=== PATIENT | female | born 1955 | race American Indian/Alaskan Native ===

== ENCOUNTER 2020-01-19 09:52 | Emergency (ER) | payer MEDICARE ==
--- NOTE | 2020-01-19 10:26 | Cat Scan Report ---
CT HEAD WITHOUT CONTRAST INDICATION : neuro deficits <6hrs or sx present upon awakening. TECHNIQUE: Axial imaging performed from the skull apex through the skull base without the use of con trast. Sagittal and coronal reformatted images. All CT scans at this location are performed using C T dose reduction for ALARA by means of automated exposure control. COMPARISON: None FINDINGS: Parenchyma: Mild diffuse volume loss is evident which appears advanced for this person's age. Modera te to large areas of in cephalomalacia are identified in the right anterior temporal lobe and watersh ed regions of the right cerebral hemisphere consistent with previous chronic ischemic infarct. No acu te parenchymal abnormality is detected. No hemorrhage, mass or extra-axial fluid collection. There ap pear to be large bilateral aneurysms arising from the terminus of both ICAs. On the right side this l esion measures 1.8 x 1.4 cm in axial plane. On the left side this lesion measures 1.7 x 1.2 cm in axi al plane. Ventricles: Ventricles are normal in size and appear symmetric. A right ventriculoperitoneal shunt t erminates in the third ventricle. Bones: No acute osseous abnormality. Sinuses: Sinuses and mastoid air cells are clear. Soft tissues: Soft tissues including the orbits appear normal. IMPRESSION: No acute intracranial process is appreciated. No evidence for hemorrhage. 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 Further evaluation with CTA is recommended. Age-related changes. CODE STROKE: Time of communication: 1020 EST Licensed Practitioner Receiving Report: Jessica MONSON A read back was performed. Signer Name: Scottie Burk Jr, MD Signed: 01/19/2020 10:22 AM Workstation Name: [id number]
[2020-01-19] MEDS ORDERED: ONDANSETRON 4 MG/2 ML INJ IV ONE (10:30)
[2020-01-19] MEDS ORDERED: ONDANSETRON 4 MG/2 ML INJ ONE (10:30)
[2020-01-19] MEDS ORDERED: levETIRAcetam 1000 MG/NS 0.75% 1,000 MG/100 ML BAG IV ONE (10:45)
[2020-01-19] MEDS ORDERED: LORazepam 2 MG/ML VIAL IV ONE ×2 (10:45→13:44)
--- NOTE | 2020-01-19 10:51 | Emergency Department Report ---
ED Neuro Deficit HPI - General Chief Complaint: Neuro Symptoms/Deficit Stated Complaint: AMS/VOMITING Time Seen by Provider: 01/19/20 09:56 Source: family, EMS Mode of arrival: Stretcher Limitations: Altered Mental Status - History of Present Illness Initial Comments: Patient is 64 years old female with history of stroke in 1997 secondary to aneurysm. Patient with history of left-sided weakness since then. Patient brought to the emergency room via EMS from home accompanied by her . stated that around 7:25 AM today patient started vomiting and became unresponsive and then she will wake up after that. stated that this is happened 3 times this morning. Patient stated that since the last episode patient became unresponsive and start looking to the right sided. Upon arrival to the ER patient with obvious jerking movement to the right side and lateral gaze. Stroke protocol immediately initiated and patient moved to CT for stat CT head without contrast. Stroke cardiology immediately consulted and patient examined by Dr. Chandler via video conference. CT brain showed bilateral aneurysm however there is no clear evidence of hemorrhage. Dr. Chandler stated that patient is not a TPA candidate in order CTA neck and brain for further evaluation. He also advised to start patient on Keppra and Ativan. Patient also given Zofran for nausea and vomiting. Currently patient is alert however she is not communicating with stable vital sign and oxygen saturation of 100%. -: Sudden, This morning Presenting Symptoms: Present: Unable to Speak Clearly, Altered Mental Status Place: home - Related Data Home Medications: Home Medications Medication Instructions Recorded Confirmed Last Taken Amlodipine Besylate/Benazepril 1 cap PO DAILY 01/19/20 01/19/20 Unknown [Amlodipine-Benazepril 5-20 mg] Baclofen [Lioresal] 10 mg PO DAILY 01/19/20 01/19/20 Unknown Furosemide [Lasix TAB] 40 mg PO QDAY 01/19/20 01/19/20 Unknown Metoprolol [Lopressor] 25 mg PO DAILY 01/19/20 01/19/20 Unknown OLANzapine [ZyPREXA] 10 mg PO DAILY 01/19/20 01/19/20 Unknown Phenytoin [Dilantin] 100 mg PO Q8HR 01/19/20 01/19/20 Unknown Simvastatin 10 mg PO DAILY 01/19/20 01/19/20 Unknown Allergies/Adverse Reactions: Allergies Allergy/AdvReac Type Severity Reaction Status Date / Time No Known Allergies Allergy Verified 01/19/20 10:35 ED Review of Systems ROS: Stated complaint: AMS/VOMITING Other details as noted in HPI Comment: Unobtainable due to pts medical conditions ED Past Medical Hx - Medications Home Medications: Home Medications Medication Instructions Recorded Confirmed Last Taken Type Amlodipine Besylate/Benazepril 1 cap PO DAILY 01/19/20 01/19/20 Unknown History [Amlodipine-Benazepril 5-20 mg] Baclofen [Lioresal] 10 mg PO DAILY 01/19/20 01/19/20 Unknown History Furosemide [Lasix TAB] 40 mg PO QDAY 01/19/20 01/19/20 Unknown History Metoprolol [Lopressor] 25 mg PO DAILY 01/19/20 01/19/20 Unknown History OLANzapine [ZyPREXA] 10 mg PO DAILY 01/19/20 01/19/20 Unknown History Phenytoin [Dilantin] 100 mg PO Q8HR 01/19/20 01/19/20 Unknown History Simvastatin 10 mg PO DAILY 01/19/20 01/19/20 Unknown History ED Neuro Physical Exam - General Limitations: Altered Mental Status General appearance: alert, in no apparent distress Suspected Stroke: Yes - Head Head exam: Present: atraumatic, normocephalic, normal inspection - Eye Eye exam: Present: normal appearance - ENT ENT exam: Present: normal exam, normal orophraynx, mucous membranes moist - Neck Neck exam: Present: normal inspection. Absent: tenderness, meningismus - Respiratory Respiratory exam: Present: normal lung sounds bilaterally - Cardiovascular Cardiovascular Exam: Present: regular rate, normal rhythm, normal heart sounds - GI/Abdominal GI/Abdominal exam: Present: soft, normal bowel sounds. Absent: distended, tenderness, guarding, rebound, rigid, mass, bruit, pulsatile mass, hernia - Extremities Exam Extremities exam: Present: normal inspection - Neurological Exam Neurological exam: Present: alert, altered - NIHSS Assessment Interval: Baseline 1a. Level of Consciousness: coma/unresponsive 1b. LOC Questions: answers no questions correctly 1c. LOC Commands: performs no tasks correctly 2. Best Gaze: forced deviation 3. Visual: no visual loss 4. Facial Palsy: normal symmetrical movement 5b. Motor Arm Right: no gravity effort 5a. Motor Arm Left: no gravity effort 6a. Motor Leg Left: no gravity effort 6b. Motor Leg Right: no gravity effort 7. Limb Ataxia: absent 8. Sensory: coma/unresponsive 9. Best Language: mute/global aphasia 10. Dysarthria: intubated or other barrier 11. Extinction/Inattention: no abnormality Total Score: 26 Stroke Severity: Severe Stroke - Skin Skin exam: Present: warm, dry ED Course Vital Signs 01/19/20 01/19/20 01/19/20 11:03 11:07 11:08 Temperature Pulse Rate 112 H 103 H Respiratory 16 16 Rate Blood Pressure Blood Pressure 154/54 [Right] O2 Sat by Pulse 96 96 Oximetry 01/19/20 01/19/20 01/19/20 11:41 11:46 12:00 Temperature Pulse Rate 107 H 111 H 107 H Respiratory 16 14 20 Rate Blood Pressure Blood Pressure 134/86 [Right] O2 Sat by Pulse 96 95 95 Oximetry 01/19/20 01/19/20 01/19/20 12:16 12:30 12:45 Temperature Pulse Rate 113 H 111 H Respiratory 21 22 Rate Blood Pressure Blood Pressure [Right] O2 Sat by Pulse 93 96 97 Oximetry 01/19/20 01/19/20 01/19/20 13:02 13:42 13:45 Temperature Pulse Rate 112 H 113 H Respiratory 19 15 Rate Blood Pressure 146/69 Blood Pressure [Right] O2 Sat by Pulse 94 97 95 Oximetry 01/19/20 01/19/20 01/19/20 14:00 14:15 14:30 Temperature Pulse Rate 112 H 109 H 104 H Respiratory 16 12 13 Rate Blood Pressure 146/69 137/90 Blood Pressure [Right] O2 Sat by Pulse 95 98 97 Oximetry 01/19/20 01/19/20 01/19/20 14:32 14:45 15:01 Temperature Pulse Rate 103 H 107 H 111 H Respiratory 18 12 14 Rate Blood Pressure 137/90 108/75 Blood Pressure 137/90 [Right] O2 Sat by Pulse 97 98 97 Oximetry 01/19/20 01/19/20 01/19/20 15:15 15:31 15:45 Temperature Pulse Rate 119 H 120 H 129 H Respiratory 12 16 16 Rate Blood Pressure 108/75 84/42 84/42 Blood Pressure [Right] O2 Sat by Pulse 96 96 96 Oximetry 01/19/20 01/19/20 01/19/20 16:00 16:15 16:30 Temperature 98 F Pulse Rate 106 H 103 H 101 H Respiratory 17 20 20 Rate Blood Pressure 138/81 138/81 131/89 Blood Pressure [Right] O2 Sat by Pulse 100 99 99 Oximetry 01/19/20 01/19/20 01/19/20 16:41 16:45 17:00 Temperature Pulse Rate 101 H 99 H 100 H Respiratory 18 12 13 Rate Blood Pressure 131/89 137/84 Blood Pressure 131/89 [Right] O2 Sat by Pulse 99 99 99 Oximetry 01/19/20 17:15 Temperature Pulse Rate 95 H Respiratory 13 Rate Blood Pressure 137/84 Blood Pressure [Right] O2 Sat by Pulse 99 Oximetry - Reevaluation(s) Reevaluation #1: 01/19/20 12:46 Nurses were unable to obtain and CTA of neck and brain. IV team also unable to access. I placed a central line, right internal jugular vein. During my procedure patient is alert, oriented x3 and able to communicate very well and moving her right upper extremities. Patient received Keppra and 1 mg of Ativan and jerking movement is completely aborted. - Central Line Placement Right IJ Consent Obtained: emergent situation Time Out Performed: Yes Patient Placed on Monitor/Pulse Ox: Yes Prep: mask, gown, gloves Central Line Prep: Povidone-Iodine 1%, Chlorhexidine scrub, sterile drapes applied Local Anesthesia Used: Lidocaine 1% Amount of Anesthesia Used (mls): 4 Ultrasound Used for Placement: Yes Central Line Lumen Inserted: triple Central Line Position: good blood return, all ports aspirated, flus, sutured in place with 2-0 Dressing Applied: Tegaderm, sterile gauze/tape Post Procedure X-Ray: tip of catheter in good p Patient Tolerated Procedure: well, no complications Complications: none - Lab Data Result diagrams: 01/19/20 10:36 01/19/20 10:36 Lab Results 01/19/20 01/19/20 01/19/20 Range/Units 10:36 10:36 10:36 WBC 13.2 H (4.5-11.0) K/mm3 RBC 4.60 (3.65-5.03) M/mm3 Hgb 13.5 (10.1-14.3) gm/dl Hct 41.7 (30.3-42.9) % MCV 91 (79-97) fl MCH 29 (28-32) pg MCHC 32 (30-34) % RDW 15.4 H (13.2-15.2) % Plt Count 449 H (140-440) K/mm3 Lymph % (Auto) [place]ingle [place]rier [place] % (Auto) Shingle Carrier Eos % (Auto) [place]ingle [place]rier Baso % (Auto) [place]rier Lymph # (Auto) Shingle Carrier [place] # (Auto) Shingle Carrier Eos # (Auto) Shingle Carrier Baso # (Auto) Shingle Carrier Add Manual Diff Complete Total Counted 100 Seg Neutrophils % Shingle Carrier Seg Neuts % (Manual) 81.0 H (40.0-70.0) % Band Neutrophils % 0 % Lymphocytes % (Manual) 12.0 L (13.4-35.0) % Reactive Lymphs % (Man) 0 % Monocytes % (Manual) 5.0 (0.0-7.3) % Eosinophils % (Manual) 0 (0.0-4.3) % Basophils % (Manual) 0 (0.0-1.8) % Metamyelocytes % 2.0 % Myelocytes % 0 % Promyelocytes % 0 % Blast Cells % 0 % Nucleated RBC % Not Reportable Seg Neutrophils # Shingle Carrier Seg Neutrophils # Man 10.7 H (1.8-7.7) K/mm3 Band Neutrophils # 0.0 K/mm3 Lymphocytes # (Manual) 1.6 (1.2-5.4) K/mm3 Abs React Lymphs (Man) 0.0 K/mm3 Monocytes # (Manual) 0.7 (0.0-0.8) K/mm3 Eosinophils # (Manual) 0.0 (0.0-0.4) K/mm3 Basophils # (Manual) 0.0 (0.0-0.1) K/mm3 Metamyelocytes # 0.3 K/mm3 Myelocytes # 0.0 K/mm3 Promyelocytes # 0.0 K/mm3 Blast Cells # 0.0 K/mm3 WBC Morphology Not Reportable Hypersegmented Neuts Not Reportable Hyposegmented Neuts Not Reportable Hypogranular Neuts Not Reportable Smudge Cells Not Reportable Toxic Granulation Not Reportable Toxic Vacuolation Not Reportable Dohle Bodies Not Reportable Pelger-Huet Anomaly Not Reportable Ana Rods Not Reportable Platelet Estimate Consistent w auto Clumped Platelets 1+ Plt Clumps, EDTA Not Reportable Large Platelets Not Reportable Giant Platelets Not Reportable Platelet Satelliting Not Reportable Plt Morphology Comment Not Reportable RBC Morphology Normal Dimorphic RBCs Not Reportable Polychromasia Not Reportable Hypochromasia Not Reportable Poikilocytosis Not Reportable Anisocytosis Not Reportable Microcytosis Not Reportable Macrocytosis Not Reportable Spherocytes Not Reportable Pappenheimer Bodies Not Reportable Sickle Cells Not Reportable Target Cells Not Reportable Tear Drop Cells Not Reportable Ovalocytes Not Reportable Helmet Cells Not Reportable Mercer-Gulfcrest Bodies Not Reportable [place] Rings Not Reportable [place]pp[place] Cells Not Reportable Bite Cells Not Reportable Crenated Cell Not Reportable Elliptocytes Not Reportable Acanthocytes (Spur) Not Reportable Rouleaux Not Reportable Hemoglobin C Crystals Not Reportable Schistocytes Not Reportable Malaria parasites Not Reportable Alexander Bodies Not Reportable Hem Pathologist Commnt No PT 15.1 H (12.2-14.9) Sec. INR 1.19 H (0.87-1.13) APTT 27.5 (24.2-36.6) Sec. Thrombin Time (15.1-19.6) Sec. Sodium 133 L (137-145) mmol/L Potassium 3.2 L (3.6-5.0) mmol/L Chloride 93.7 L (98-107) mmol/L Carbon Dioxide 23 (22-30) mmol/L Anion Gap 20 mmol/L BUN 5 L (7-17) mg/dL Creatinine 0.7 (0.6-1.2) mg/dL Estimated GFR > 60 ml/min BUN/Creatinine Ratio 7 % Glucose 199 H (65-100) mg/dL Calcium 9.1 (8.4-10.2) mg/dL Total Bilirubin (0.1-1.2) mg/dL Direct Bilirubin (0-0.2) mg/dL Indirect Bilirubin mg/dL AST (5-40) units/L ALT (7-56) units/L Alkaline Phosphatase (35-129) units/L Troponin T < 0.010 (0.00-0.029) ng/mL Total Protein (6.3-8.2) g/dL Albumin (3.9-5) g/dL Albumin/Globulin Ratio % 01/19/20 01/19/20 Range/Units 10:36 10:36 WBC (4.5-11.0) K/mm3 RBC (3.65-5.03) M/mm3 Hgb (10.1-14.3) gm/dl Hct (30.3-42.9) % MCV (79-97) fl MCH (28-32) pg MCHC (30-34) % RDW (13.2-15.2) % Plt Count (140-440) K/mm3 Lymph % (Auto) [place] % (Auto) Eos % (Auto) Baso % (Auto) Lymph # (Auto) [place] # (Auto) Eos # (Auto) Baso # (Auto) Add Manual Diff Total Counted Seg Neutrophils % Seg Neuts % (Manual) (40.0-70.0) % Band Neutrophils % % Lymphocytes % (Manual) (13.4-35.0) % Reactive Lymphs % (Man) % Monocytes % (Manual) (0.0-7.3) % Eosinophils % (Manual) (0.0-4.3) % Basophils % (Manual) (0.0-1.8) % Metamyelocytes % % Myelocytes % % Promyelocytes % % Blast Cells % % Nucleated RBC % Seg Neutrophils # Seg Neutrophils # Man (1.8-7.7) K/mm3 Band Neutrophils # K/mm3 Lymphocytes # (Manual) (1.2-5.4) K/mm3 Abs React Lymphs (Man) K/mm3 Monocytes # (Manual) (0.0-0.8) K/mm3 Eosinophils # (Manual) (0.0-0.4) K/mm3 Basophils # (Manual) (0.0-0.1) K/mm3 Metamyelocytes # K/mm3 Myelocytes # K/mm3 Promyelocytes # K/mm3 Blast Cells # K/mm3 WBC Morphology Hypersegmented Neuts Hyposegmented Neuts Hypogranular Neuts Smudge Cells Toxic Granulation Toxic Vacuolation Dohle Bodies Pelger-Huet Anomaly Ana Rods Platelet Estimate Clumped Platelets Plt Clumps, EDTA Large Platelets Giant Platelets Platelet Satelliting Plt Morphology Comment RBC Morphology Dimorphic RBCs Polychromasia Hypochromasia Poikilocytosis Anisocytosis Microcytosis Macrocytosis Spherocytes Pappenheimer Bodies Sickle Cells Target Cells Tear Drop Cells Ovalocytes Helmet Cells Mercer-Gulfcrest Bodies [place] Rings Coppell Cells Bite Cells Crenated Cell Elliptocytes Acanthocytes (Spur) Rouleaux Hemoglobin C Crystals Schistocytes Malaria parasites Alexander Bodies Hem Pathologist Commnt PT (12.2-14.9) Sec. INR (0.87-1.13) APTT (24.2-36.6) Sec. Thrombin Time 20.3 H (15.1-19.6) Sec. Sodium (137-145) mmol/L Potassium (3.6-5.0) mmol/L Chloride (98-107) mmol/L Carbon Dioxide (22-30) mmol/L Anion Gap mmol/L BUN (7-17) mg/dL Creatinine (0.6-1.2) mg/dL Estimated GFR ml/min BUN/Creatinine Ratio % Glucose (65-100) mg/dL Calcium (8.4-10.2) mg/dL Total Bilirubin 0.50 (0.1-1.2) mg/dL Direct Bilirubin < 0.2 (0-0.2) mg/dL Indirect Bilirubin 0.3 mg/dL AST 19 (5-40) units/L ALT 9 (7-56) units/L Alkaline Phosphatase 145 H (35-129) units/L Troponin T (0.00-0.029) ng/mL Total Protein 9.2 H (6.3-8.2) g/dL Albumin 3.7 L (3.9-5) g/dL Albumin/Globulin Ratio 0.7 % - EKG Data -: EKG Interpreted by Hi EKG shows normal: sinus rhythm Rate: tachycardia Interpretation: no acute changes - Radiology Data Radiology results: report reviewed - Medical Decision Making Patient is 64 years old female with history of stroke in 1997 secondary to aneurysm. Patient with history of left-sided weakness since then. Patient brought to the emergency room via EMS from home accompanied by her . stated that around 7:25 AM today patient started vomiting and became unresponsive and then she will wake up after that. stated that this is happened 3 times this morning. Patient stated that since the last episode patient became unresponsive and start looking to the right sided. Upon arrival to the ER patient with obvious jerking movement to the right side and lateral gaze. Stroke protocol immediately initiated and patient moved to CT for stat CT head without contrast. Stroke cardiology immediately consulted and patient examined by Dr. Chandler via video conference. CT brain showed bilateral aneurysm however there is no clear evidence of hemorrhage. Dr. Chandler stated that patient is not a TPA candidate in order CTA neck and brain for further evaluation. He also advised to start patient on Keppra and Ativan. Patient also given Zofran for nausea and vomiting. Currently patient is alert however she is not communicating with stable vital sign and oxygen saturation of 100%. Patient remains seizure-free. Patient is alert and communicating well. Patient evaluated by me several times. I discussed the patient with Dr. Almonte, neurosurgeon at [facility] and stated that patient need to be transferred to a tertiary hospital for further evaluation and possible stent. I discussed the patient with Dr. Nj, neurosurgeon at [facility] and advised to discuss the patient with the neurologist and proceed from there. I discussed the patient with Dr. Bird, neurologist at [facility] and accepted the patient to be transferred to [facility] for further management. Critical Care Time: Yes Critical care time in (mins) excluding proc time.: 60 Critical care attestation.: If time is entered above; I have spent that time in minutes in the direct care of this critically ill patient, excluding procedure time. ED Disposition Clinical Impression: Altered mental status, CVA (cerebral vascular accident), New onset seizure, Brain aneurysm Disposition: DC/TX-70 ANOTHER TYPE HLTHCARE Is pt being admited?: No Condition: Critical Referrals: DR NOGUEIRA,[facility] [Other] - 3-5 Days
[2020-01-19 10:52] LABS: INR 1.19 (0.87-1.13)
[2020-01-19 10:53] LABS: Partial Thromboplastin Time 27.5 Sec. (24.2-36.6)
[2020-01-19 10:54] LABS: Blood Urea Nitrogen 5 mg/dL (7-17); Calcium 9.1 mg/dL (8.4-10.2); Hemolysis Index 51
[2020-01-19 10:55] LABS: Hematocrit 41.7 % (30.3-42.9); Hemoglobin 13.5 gm/dl (10.1-14.3); Mean Corpuscular HGB Conc 32 % (30-34); Mean Corpuscular Volume 91 fl (79-97); Red Cell Distribution Width 15.4 % (13.2-15.2)
[2020-01-19 10:56] LABS: Platelet Count 449 K/mm3 (140-440)
--- NOTE | 2020-01-19 10:59 | Emergency Department Report ---
ED Neuro Deficit HPI - General Chief Complaint: Neuro Symptoms/Deficit Stated Complaint: AMS/VOMITING Time Seen by Provider: 01/19/20 09:56 Source: family, EMS Mode of arrival: Stretcher Limitations: Altered Mental Status - History of Present Illness Initial Comments: [facility] Tele[facility]urology Consult Services TeleStroke Metrics: LKW: 0725 Door Time: 0952 [facility] Contacted: 0951 [facility] at Bedside: 0955 NIHSS: 1014 Decision on Alteplase: Not to give due to the patient's history of ruptured intracranial aneurysm with current evidence of new large intracranial ICA aneurysms. was in agreement with this decision. Interventional Candidate: Likely not a candidate as her symptoms are not consistent with a large vessel proximal occlusion. CTA head and neck are pending. Chief Complaint: Altered mental status HPI: Asked to see this patient in emergent telemedicine consultation utilizing interactive audio and video technologies. Consultation was performed with assistance of ancillary / medical staff at bedside. Verbal consent to perform the examination with telemedicine was obtained. Patient agreed to proceed with the consultation for acute stroke protocol. 55-year-old left-handed -Portuguese female who comes to the emergency room by EMS as a stroke alert for unresponsiveness, right gaze preference, and left- sided weakness. I was able to speak with the patient's , Isauro, over the phone. According to Isauro, back in 1998, patient had what sounded like a ruptured intracranial aneurysm that resulted in a large right MCA stroke. She was a smoker before then. Patient was cared for at [facility]. She required a INDUSTRIAL MAINTENANCE REPAIRER shunt for hydrocephalus. Since that time, the patient has severe left-sided weakness and is essentially wheelchair-bound and bedbound. She can transfer with help. Isauro states the patient has never had a seizure before. It appears she is not on any blood thinners and she might be on dilantin. Isauro does not remember if the patient had any intervention with her intracranial aneurysms in 1998. According to Isauro, the patient had been having these intermittent vomiting episodes over the last 2 weeks. Patient woke up around 5 AM or 6 AM this mo rning and appeared fine. Then starting around 7:25 AM, the patient appeared as if she was trying to vomit but nothing would come out. He states that the patient would not respond to him and her eyes would just stare off. He states that the patient would answer some questions but would not do anything like lift up her arms when he asked her to. He states that the patient had a total of 3 discrete episodes this morning. In between each episode she appeared to come back to baseline. Each episode lasted around 5 to 10 minutes. EMS was called after her third episode this morning. According to the ER team, when the patient came into the ER she had what appeared to be tonic jerking movements of her arms and shoulders. She had a persistent right gaze preference. She is nonverbal does not follow any commands. PMH: History of ruptured intracranial aneurysm with right MCA strokes in 1998 at [facility] with INDUSTRIAL MAINTENANCE REPAIRER shunting for hydrocephalus with chronic left hemiparesis; hypertension; hyperlipidemia. SOC: Negative x3. Patient smoked before in the past prior to her ruptured intracranial aneurysm. Patient is . Isauro's contact information is [phone]. Patient is essentially wheelchair and bedbound, but can transfer with assistance FMH: Sister of a ruptured intracranial aneurysm. ROS: 13 point review of systems were reviewed with the patients , and a re all negative with the exception of the aforementioned in the history of present illness. VS: Blood pressure 158/103 and pulse 118 Exam: Patient is in no apparent distress. Patient appears as stated age. No obvious acute respiratory or cardiac distress. Patient is well groomed and well-nourished. 1a- LOC: Not keenly responsive - 2 1b- LOC questions: Answers neither questions correctly - 2 1c- LOC commands- Performs neither tasks correctly- 2 2- Gaze: Right gaze deviation - 2 3- Visual Turner: normal, no Visual field deficit - 0 4- Facial movements: No facial palsy - 0 5- Upper limb motor Bilateral arm drifts - 8 6- Lower limb motor Bilateral leg drifts - 8 7- Limb Coordination: absent ataxia - 0 8- Sensory: no sensory loss - 0 9- Language - Global aphasia - 3 10- Speech - Severe dysarthria - 2 11- Neglect / Extinction left sided neglect - 2 NIHSS score: 31 Diagnostic Data: CT head showed no obvious acute intracranial hemorrhage, mass, or large territory stroke. There is a large area of encephalomalacia within the right MCA territory. Patient also was noted to have large bilateral terminal ICA intracranial aneurysms with the right measuring 1.8 x 1.4 cm and the left measuring 1.7 x 1.2 cm. EMS blood glucose 165 Medical Data Reviewed: 1.Data?reviewed include clinical labs, radiology,?and medical tests; 2.Tests?results discussed w/performing or interpreting physician; 3.Obtaining/reviewing old medical records; 4.Obtaining?case history from another source; 5.Independent?review of image, tracing, or specimen. Medical Decision Making: - Extensive number of diagnosis or management options are considered below. - Extensive amount of complex data reviewed. - High risk of complication and/or morbidity or mortality are associated with differential diagnostic considerations below. - There may be?uncertain?outcome and increased probability of prolonged functional impairment or high probability of severe prolonged functional impairment associated with some of these differential diagnosis. Differential Diagnosis for Stroke: 1.?Cardioembolic?stroke 2. Small vessel disease/lacune 3. Thromboembolic, yxmrta-[id number] mechanism 4.?Hypercoagulable?state-related infarct 5. Transient ischemic attack 6. Thrombotic mechanism, large artery disease Assessment: 1. Altered mental status with possible seizure and status epilepticus 2. History of ruptured intracranial aneurysm with large right MCA stroke and chronic left hemiparesis in 1998 3. Possible large bilateral terminal ICA intracranial aneurysms 4. Hypertension Recommendations: CTA head and neck are pending. Patient can be given a trial of IV Ativan and IV Keppra 1000 mg x 1 now. If the patient does not improve, she should be intubated for airway protection and for presumed nonconvulsive status epilepticus. If the patient is intubated, then can initiate her on a Versed drip or propofol drip. Patient should be transferred ideally back to [facility] for neurosurgical evaluation for her bilateral large ICA aneurysms and also for inpatient neurology evaluation with necessity for continuous video EEG monitoring. Continue supportive care Plan of care was discussed with the patient's . Thank you for allowing [facility] to participate in the care of your patient. Please call me, Dr. Gan, with any questions at [phone]. Case discussed with the ER staff and Dr. Lopez. Critical Care notation: I was called to see this critical patient emergently. I personally evaluated this critical patient for acute stroke evaluation, and determining their eligibility for IV Alteplase and interventional therapies. I have spent approximately 40 minutes with the patient, including time at bedside, time discussing the case with other physicians, reviewing plan of care, and time independently reviewing the records and scans. Place: home - Related Data Allergies/Adverse Reactions: Allergies Allergy/AdvReac Type Severity Reaction Status Date / Time No Known Allergies Allergy Verified 01/19/20 10:35 ED Review of Systems ROS: Stated complaint: AMS/VOMITING Other details as noted in HPI ED Neuro Physical Exam - General Limitations: Altered Mental Status General appearance: alert, in no apparent distress Suspected Stroke: No - Lab Data Result diagrams: 01/19/20 10:36 Lab Results 01/19/20 01/19/20 01/19/20 Range/Units 10:36 10:36 10:36 WBC 13.2 H (4.5-11.0) K/mm3 RBC 4.60 (3.65-5.03) M/mm3 Hgb 13.5 (10.1-14.3) gm/dl Hct 41.7 (30.3-42.9) % MCV 91 (79-97) fl MCH 29 (28-32) pg MCHC 32 (30-34) % RDW 15.4 H (13.2-15.2) % Plt Count 449 H (140-440) K/mm3 Lymph % (Auto) Deer Farmer Barren % (Auto) Deer Farmer Eos % (Auto) Deer Farmer Baso % (Auto) Deer Farmer Lymph # (Auto) Deer Farmer Barren # (Auto) Deer Farmer Eos # (Auto) Deer Farmer Baso # (Auto) Deer Farmer Seg Neutrophils % Deer Farmer Seg Neutrophils # Deer Farmer PT 15.1 H (12.2-14.9) Sec. INR 1.19 H (0.87-1.13) APTT 27.5 (24.2-36.6) Sec. Thrombin Time 20.3 H (15.1-19.6) Sec. Critical care attestation.: If time is entered above; I have spent that time in minutes in the direct care of this critically ill patient, excluding procedure time. ED Disposition Clinical Impression: Altered mental status Disposition: DC-[id number] OP ADMIT IP TO THIS HOSP Is pt being admited?: Yes Does the pt Need Aspirin: No Condition: Critical
[2020-01-19 11:00] LABS: Alanine Aminotransferase 9 units/L (7-56); Albumin 3.7 g/dL (3.9-5); BUN/Creatinine Ratio 7
[2020-01-19 11:06] LABS: Bilirubin,Direct < 0.2 mg/dL (0-0.2)
[2020-01-19 11:44] LABS: Basophils % (Manual) 0 % (0.0-1.8); Eosinophils % (Manual) 0 % (0.0-4.3); Total Cells Counted 100
[2020-01-19 11:52] LABS: RBC Morphology Normal
[2020-01-19 11:53] LABS: Platelet Clumps 1+; Platelet Estimate Consistent w Auto
--- NOTE | 2020-01-19 12:56 | XRay Report ---
XR chest 1V ap INDICATION / CLINICAL INFORMATION: Right internal jugular vein central line placement. COMPARISON: None FINDINGS: SUPPORT DEVICES: Right IJ central venous catheter terminates in the region of the cavoatrial junction . Partially imaged BOILERMAKER ASSEMBLY AND ERECTION shunt catheter is intact without kinking or discontinuity. There is calcificati ons along the catheter in the neck. HEART /PULMONARY VASCULATURE: No significant abnormality. LUNGS / PLEURA: No significant pulmonary or pleural abnormality. No pneumothorax. ADDITIONAL FINDINGS: No significant additional findings. IMPRESSION: Satisfactory position of right IJ central venous catheter. No pneumothorax or other acute chest proce ss. Signer Name: Noe Tee MD Signed: 01/19/2020 12:52 PM Workstation Name: [id number]
[2020-01-19] MEDS: POTASSIUM CHLORIDE 10 MEQ 10 MEQ/100 ML BAG IV SCH ×2 (15:11→16:04)
--- NOTE | 2020-01-19 15:33 | Cat Scan Report ---
CT angio head INDICATION / CLINICAL INFORMATION: 64 years Female; MAIN. TECHNIQUE: Thin cut axial images obtained through the head during IV bolus contrast administration. S agittal, coronal, and 3 plane MIP reconstructions performed by the technologist. NASCET type criteria used evaluate stenoses. Automated exposure control utilized for radiation reduction purposes. COMPARISON: None available. FINDINGS: INTERNAL CAROTID ARTERIES: No significant narrowing appreciated. VERTEBROBASILAR SYSTEM: The basilar artery is diminutive in size-majority of blood flow to the beer maker ior cerebral circulation is via the posterior communicating arteries. Vertebral arteries largely term inate in in the PICA territories. DISTAL BRANCHES: Distal MADHURI branches on the right are less well visualized when compared with the lef t, which may be associated with encephalomalacia in the same vascular territory. Distal branches of the right MCA territory are less well visualized when compared with the left, whic h may be related to the encephalomalacic type changes seen in the right temporal lobe anteriorly. Distal branches of the right CHECKER/STOCKER territory less well visualized when compared with the left, which mo st likely corresponds with encephalomalacia in the right occipital lobe. ANEURYSM: 1.5 cm aneurysm is seen at the junction of the left internal carotid artery and left M1 seg ment. The A1 segment on the left has its origin from the inferolateral margin of the aneurysm, approx imately 2 mm medial to the left ICA. There is also a multilobular, large aneurysm on the right, measuring up to 2 cm in maximum dimension. A large portion of this lobular aneurysm is thrombosed. The origin appears to be just distal to the origin of the posterior communicating artery on the right, along the inferolateral wall of the commun icating portion of the right ICA. ADDITIONAL FINDINGS: Ventricular catheter noted. No signs of hydrocephalus. IMPRESSION: 1. Aneurysms as described above. 2. Decreased visualization of vessels in a number of vascular distributions as described above. Aristeo rison with remote exams would be helpful, if available. Signer Name: Jac Vogt MD, III Signed: 01/19/2020 3:29 PM Workstation Name: [id number]
--- NOTE | 2020-01-19 15:40 | Cat Scan Report ---
CT angio neck INDICATION / CLINICAL INFORMATION: 64 years Female; MAIN. TECHNIQUE: Thin cut axial images obtained through the head during IV bolus contrast administration. S agittal, coronal, and 3 plane MIP reconstructions performed by the technologist. NASCET type criteria used evaluate stenoses. All CT scans at this location are performed using CT dose reduction for ALAR A by means of automated exposure control. COMPARISON: None available. FINDINGS: ARCH: Normal aortic arch branching suggested. Mild narrowing seen towards the left common carotid art geovani related to atherosclerotic disease. CAROTID ARTERIES: The visualized common and internal carotid arteries are widely patent. VERTEBRAL ARTERIES: Right dominant vertebral system seen. Areas of mild narrowing are seen in the marla tebral arteries-not felt to be hemodynamically significant. ADDITIONAL FINDINGS: Prominent left paraspinous disc disease and spondylosis seen at C4-5 which certa inly could flatten the left anterior hemicord. Please clinically correlate. Mild disc disease seen at C5-6, as well. Prominent epidural soft tissue is seen at C2 and C3. Similar finding is seen in the posterior epidura l space at C2. Findings result in thecal sac narrowing, which encroaches upon the cervical cord. MRI of the cervical spine may be helpful in further evaluating the cord, as clinically warranted. Compari son with any remote exam may be helpful, if available, as well. Central line seen on the right. Ventricular catheter tubing noted on the right, as well. IMPRESSION: 1. No hemodynamically significant stenosis appreciated on this CTA of the neck. 2. Thecal sac narrowing in the upper cervical spine as described above. MRI may be of benefit, if cli nically warranted. Signer Name: Jac Vogt MD, III Signed: 01/19/2020 3:35 PM Workstation Name: [id number]
[2020-01-19 17:26] VITALS: BP 137/84
== END 2020-01-19 19:28 | disposition other institution (70) ==
LOC: EDBD 09:52 → ED 09:52
DX: R41.82 Altered mental status, unspecified (principal); I63.9 Cerebral infarction, unspecified; G40.909 Epilepsy, unspecified, not intractable, without status epilepticus; I67.1 Cerebral aneurysm, nonruptured; Z79.899 Other long term (current) drug therapy
CPT/HCPCS: 36415; 36556; 70450; 70496; 70498; 71045; 80048; 80076; 84484; 85007; 85025; 85610; 85670; 85730; 93005; 96361; 96365; 96375; 99285; J1642; J1953; J2060; J2405; J3480; Q9967

== ENCOUNTER 2021-08-07 15:35 | Emergency (ER) | payer OTHER, MEDICARE ==
--- NOTE | 2021-08-07 17:13 | Emergency Department Report ---
ED General Adult HPI - General Chief complaint: Medical Clearance Stated complaint: LOW BLOOD PRESSURE Time Seen by Provider: 08/07/21 17:05 Source: EMS Mode of arrival: Stretcher Limitations: No Limitations - History of Present Illness Initial comments: Patient is a 66-year-old female sent from routine clinic visit for evaluation of transient hypotension. She denies any symptoms. Past history of stroke. Currently states that she is hungry. - Related Data Home Medications Medication Instructions Recorded Confirmed Last Taken Amlodipine Besylate/Benazepril 1 cap PO DAILY 01/19/20 01/19/20 Unknown [Amlodipine-Benazepril 5-20 mg] Baclofen [Lioresal] 10 mg PO DAILY 01/19/20 01/19/20 Unknown Furosemide [Lasix TAB] 40 mg PO QDAY 01/19/20 01/19/20 Unknown Metoprolol [Lopressor] 25 mg PO DAILY 01/19/20 01/19/20 Unknown OLANzapine [ZyPREXA] 10 mg PO DAILY 01/19/20 01/19/20 Unknown Phenytoin [Dilantin] 100 mg PO Q8HR 01/19/20 01/19/20 Unknown Simvastatin 10 mg PO DAILY 01/19/20 01/19/20 Unknown Allergies Allergy/AdvReac Type Severity Reaction Status Date / Time No Known Allergies Allergy Verified 01/19/20 10:35 ED Review of Systems ROS: Stated complaint: LOW BLOOD PRESSURE Other details as noted in HPI Comment: All other systems reviewed and negative Constitutional: denies: chills, fever Respiratory: denies: cough, shortness of breath, wheezing Cardiovascular: denies: chest pain, palpitations Gastrointestinal: denies: abdominal pain, nausea, diarrhea Musculoskeletal: denies: back pain, joint swelling, arthralgia Skin: denies: rash, lesions Neurological: denies: headache, weakness, paresthesias Psychiatric: denies: anxiety, depression ED Past Medical Hx - Past Medical History Hx Hypertension: Yes Hx CVA: Yes (Stroke 1998 with left sided deficits) Additional medical history: Aneurysm - Social History Smoking Status: Never Smoker - Medications Home Medications: Home Medications Medication Instructions Recorded Confirmed Last Taken Type Amlodipine Besylate/Benazepril 1 cap PO DAILY 01/19/20 01/19/20 Unknown History [Amlodipine-Benazepril 5-20 mg] Baclofen [Lioresal] 10 mg PO DAILY 01/19/20 01/19/20 Unknown History Furosemide [Lasix TAB] 40 mg PO QDAY 01/19/20 01/19/20 Unknown History Metoprolol [Lopressor] 25 mg PO DAILY 01/19/20 01/19/20 Unknown History OLANzapine [ZyPREXA] 10 mg PO DAILY 01/19/20 01/19/20 Unknown History Phenytoin [Dilantin] 100 mg PO Q8HR 01/19/20 01/19/20 Unknown History Simvastatin 10 mg PO DAILY 01/19/20 01/19/20 Unknown History ED Physical Exam - General Limitations: No Limitations General appearance: alert, in no apparent distress - Head Head exam: Present: atraumatic, normocephalic - Respiratory Respiratory exam: Present: normal lung sounds bilaterally. Absent: respiratory distress - Cardiovascular Cardiovascular Exam: Present: normal rhythm, bradycardia, normal heart sounds - GI/Abdominal GI/Abdominal exam: Present: soft. Absent: distended, tenderness - Neurological Exam Neurological exam: Present: alert, oriented X3 - Psychiatric Psychiatric exam: Present: normal affect, normal mood - Skin Skin exam: Present: warm, dry, intact, normal color ED Course Vital Signs 08/07/21 08/07/21 15:41 17:04 Pulse Rate 48 L 50 L Respiratory 18 20 Rate Blood Pressure 139/67 Blood Pressure 146/63 [Right] O2 Sat by Pulse 99 100 Oximetry ED Medical Decision Making - Medical Decision Making Physical exam is benign. Blood pressure currently 128/65. Patient hemodynamically stable. She is stable for discharge home with family. Critical care attestation.: If time is entered above; I have spent that time in minutes in the direct care of this critically ill patient, excluding procedure time. ED Disposition Clinical Impression: Transient hypotension Disposition: 01 HOME / SELF CARE / HOMELESS Is pt being admited?: No Does the pt Need Aspirin: No Condition: Stable Instructions: Hypotension, [id number] Time of Disposition: 17:13
[2021-08-07 18:45] VITALS: BP 128/65
== END 2021-08-07 17:45 | disposition home or self-care (01) ==
LOC: ED 15:35
DX: I95.89 Other hypotension (principal); I10 Essential (primary) hypertension; Z86.73 Personal history of transient ischemic attack (TIA), and cerebral infarction without residual deficits; Z79.899 Other long term (current) drug therapy
CPT/HCPCS: 99283